=== PATIENT | female | born 1995 | race Caucasian/White ===

== ENCOUNTER 2017-04-16 15:36 | Emergency (ER) | payer SELFPAY ==
[~2017-04-16] VITALS: Ht 167.6 cm; Wt 54.4 kg
--- OUTSIDE RECORDS SUMMARY | 2017-04-16 15:44 | XMS REPORT | Continuity of Care Document ---
Author Author [facility] Address Unknown Phone Unavailable Allergies Medications Problems Date Dx Coded Attending Type Code Diagnosis Diagnosed By 06/27/2008 132.0 LICE HEAD 06/27/2008 132.0 LICE HEAD 06/27/2008 IRIS COREA DO 132.0 LICE HEAD 11/21/2010 V25.40 CONTRACEPTIVE SURVEILLANCE UNSPECIFIED 11/21/2010 V25.40 CONTRACEPTIVE SURVEILLANCE UNSPECIFIED 11/21/2010 IRIS COREA DO V25.40 CONTRACEPTIVE SURVEILLANCE UNSPECIFIED 11/28/2010 V03.89 MENINGOCOCCAL VACCINE 11/28/2010 V06.5 DT, TETANUS-DIPHTHERIA [Td] ,TDAP 11/28/2010 V03.89 MENINGOCOCCAL VACCINE 11/28/2010 V06.5 DT, TETANUS-DIPHTHERIA [Td] ,TDAP 11/28/2010 IRIS COREA DO V03.89 MENINGOCOCCAL VACCINE 11/28/2010 IRIS COREA DO V06.5 DT, TETANUS-DIPHTHERIA [Td] ,TDAP 12/26/2010 626.2 EXCESSIVE OR FREQUENT MENSTRUATION 12/26/2010 706.1 ACNE 12/26/2010 626.2 EXCESSIVE OR FREQUENT MENSTRUATION 12/26/2010 706.1 ACNE 12/26/2010 IRIS COREA DO 626.2 EXCESSIVE OR FREQUENT MENSTRUATION 12/26/2010 IRIS COREA DO 706.1 ACNE 01/02/2011 729.5 PAIN IN LIMB 01/02/2011 729.5 PAIN IN LIMB 01/02/2011 IRIS COREA DO 729.5 PAIN IN LIMB 04/23/2011 079.99 VIRAL SYNDROME 04/23/2011 079.99 VIRAL SYNDROME 04/23/2011 IRIS COREA DO 079.99 VIRAL SYNDROME 07/28/2012 487.1 INFLUENZA 07/28/2012 487.1 INFLUENZA 07/28/2012 IRIS COREA DO 487.1 INFLUENZA 08/03/2013 IRIS COREA DO 466.0 ACUTE BRONCHITIS Procedures Code [place] [id number] INFLUENZA A & B (IN-HOUSE) 08/12/2012 Results Encounters ACCT No. Visit Date/Time Discharge Status Pt. Type Provider Facility Loc./Unit Complaint [id number] 08/03/2013 08:31:00 08/03/2013 23: 59:59 CLS Outpatient IRIS COREA DO [id number] 07/28/2012 13:42:00 07/28/2012 23: 59:59 CLS Outpatient [id number] 07/28/2012 13:42:00 07/28/2012 23: 59:59 CLS Outpatient [id number] 09/26/2012 20:56:05 RECURRING
[2017-04-16] MEDS ORDERED: PRED5TAB PO (16:30)
[2017-04-16] MEDS ORDERED: BENZ-13 PO (16:30)
[2017-04-16] MEDS ORDERED: AZIT250T5 PO (16:30)
--- NOTE | 2017-04-16 16:31 | ED Cough/URI ---
General Chief Complaint: Cough/Cold/Flu Symptoms Stated Complaint: SORE THROAT Nursing Triage Note: cough times 2 weeks, worse last night yellow mucous, hendricks earache sore throat, no fever vomiting Source: patient Exam Limitations: no limitations History of Present Illness Time seen by provider: 16:26 Initial Comments To ER with reports of a sore throat and cough. The cough has been present for 2 weeks and is intermittently productive. Also has earache and sore throat. No fevers or vomiting. States that her mother is ill with the same. Timing/Duration: just prior to arrival Severity/Quality: moderate Associated Symptoms: denies symptoms Allergies and Home Medications Allergies Coded Allergies: No Known Drug Allergies (Unverified , 04/16/17) Home Medications No Active Prescriptions or Reported Meds Constitutional: see HPI EENTM: see HPI Respiratory: no symptoms reported Cardiovascular: no symptoms reported Genitourinary: no symptoms reported Musculoskeletal: no symptoms reported Skin: see HPI Psychiatric/Neurological: No Symptoms Reported Hematologic/Lymphatic: No Symptoms Reported Past Cajgqew-Xbcynh-Ynvpfz Hx Patient Social History Alcohol Use: Denies Use Recreational Drug Use: No Smoking Status: Never a Smoker 2nd Hand Smoke Exposure: No Recent Foreign Travel: No Contact w/Someone Who Travel: No Recent Infectious Disease Expo: No Recent Hopitalizations: No Physical Abuse: No Sexual Abuse: No Mistreated: No Fear: No Immunizations Up To Date Tetanus Booster (TDap): Unknown Seasonal Allergies Seasonal Allergies: No Surgeries History of Surgeries: No Respiratory History of Respiratory Disorde: No Cardiovascular History of Cardiac Disorders: No Neurological History of Neurological Disord: No Genitourinary History of Genitourinary Disor: No Gastrointestinal History of Gastrointestinal Di: No Musculoskeletal History of Musculoskeletal Dis: No Endocrine History of Endocrine Disorders: No HEENT History of HEENT Disorders: No Cancer History of Cancer: No Psychosocial History of Psychiatric Problem: No Suicide Risk Score: 0 Integumentary History of Skin or Integumenta: No Blood Transfusions History of Blood Disorders: No Adverse Reaction to a Blood Tr: No Physical Exam Vital Signs Vital Sign - Last 12Hours 04/16/17 16:16 Temp 97.3 Pulse 82 Resp 18 B/P (MAP) 129/92 Pulse Ox 97 Capillary Refill : Less Than 3 Seconds General Appearance: WD/WN, no apparent distress Eyes: Bilateral Eye Normal Inspection, Bilateral Eye PERRL, Bilateral Eye EOMI HEENT: PERRL/EOMI Neck: non-tender, full range of motion Respiratory: normal breath sounds, no respiratory distress, no accessory muscle use Cardiovascular: regular rate, rhythm, no murmur Gastrointestinal: normal bowel sounds, non tender, soft Neurologic/Psychiatric: alert, normal mood/affect, oriented x 3 Skin: normal color, warm/dry Progress/Results/Core Measures Results/Orders Vital Signs/I&O Vital Sign - Last 12Hours 04/16/17 16:16 Temp 97.3 Pulse 82 Resp 18 B/P (MAP) 129/92 Pulse Ox 97 Blood Pressure Mean: 104 Departure Impression Impression: Primary Impression: Bronchitis Disposition: 01 HOME, SELF-CARE Condition: Stable Departure-Patient Inst. Decision time for Depature: 16:28 Referrals: NO,LOCAL PHYSICIAN (PCP) Primary Care Physician Patient Instructions: Acute Bronchitis in Adults Add. Discharge Instructions: All discharge instructions reviewed with patient and/or family. Voiced understanding. Scripts Benzonatate (Tessalon Perle) 100 Mg Capsule 100 MG PO TID Y for COUGH, #10 CAP Prov: IDANIA FAY APRN 04/16/17 Prednisone (Prednisone) 5 Mg Tablet 40 MG PO DAILY, #16 TAB Prov: IDANIA FAY APRN 04/16/17 Azithromycin (Azithromycin) 250 Mg Tablet 250 MG PO UD, #6 TAB TAKE 2 TABLETS ON DAY ONE THEN TAKE 1 TABLET DAILY FOR FOUR MORE DAYS Prov: IDANIA FAY APRN 04/16/17 Work/School Note: Work Release Form Date Seen in the Emergency Department: Apr 16, 2017 Return to Work: Apr 18, 2017 IDANIA FAY APRN Apr 16, 2017 16:31
[2017-04-16 17:16] VITALS: BP 120/70
== END 2017-04-16 16:36 | disposition home or self-care (01) ==
LOC: EDUNIT# 15:36 → ER 15:41
DX: J40 Bronchitis, not specified as acute or chronic (principal)
CPT/HCPCS: 99282